=== PATIENT | male | born 1930 | race Caucasian/White ===

== ENCOUNTER 2016-09-04 12:42 | Inpatient (IN) | payer MEDICARE ==
[~2016-09-04] VITALS: Ht 177.8 cm; Wt 87.2 kg
[2016-09-04] VITALS (8 sets, daily range): BP systolic 133–193; BP diastolic 56–84; PULSE 85–111; RESP 16–18; O2SAT 97–100
[~2016-09-04 12:42] MED LIST: FURO20TA PO; METF-488 PO; METO25T PO; OMEP20TA86 PO; RANI50VI IJ; TERA10CA15 PO; ZOC20 PO
[2016-09-04 14:30] LABS: BASOPHILS % (AUTO) 0.1 % (0-3); EOSINOPHILS % (AUTO) 0.1 % (0-5); MONOCYTES % (AUTO) 10.7 % (4-12); Mean Corpuscular Hemoglobin 30.4 pg (27.0-35.0); Mean Corpuscular Volume 93.7 fL (81-100); NEUTROPHILS % (AUTO) 71.6 % (40-74); Platelet Count 228 bil/L (150-400)
[2016-09-04 14:54] LABS: INR 0.95 ratio
[2016-09-04] MEDS ORDERED: LOSA50TA37 PO (15:22)
--- NOTE | 2016-09-04 15:46 | ED.REPORT ---
HPI-GI Bleed Date of Service Sep 04, 2016 ED Provider: Jose Ramon Bailon MD 86 y/o male with a hx of non-insulin dependent DM and HTN presents to the ED complaining of constant melena, a week ago. Associated sx include nausea, high BP, weakness, lightheadedness, dizziness and mild abdominal pain "around the belt line going all the way across the back". He denies vomiting. His last BM was yesterday morning. The pt took Tylenol today. Nursing Notes Stated Complaint: POSS INTERNAL BLEEDING Chief Complaint: Male Abdominal Pain Nursing Notes Reviewed: Yes Allergies: Coded Allergies: codeine (Verified Allergy, Severe, 09/04/16) colchicine (Verified Allergy, Unknown, 09/04/16) Scheduled Losartan Potassium (Losartan Potassium) 50 Mg Tablet 50 MG PO DAILY Miscellaneous Medications Furosemide-Expunged Drug, Do Not Renew! (Furosemide-Expunged Drug, Do Not Renew! ) 20 Mg Tablet 20 MG PO Metformin-Expunged Drug, Do Not Renew! (Metformin-Expunged Drug, Do Not Renew!) 1,000 Mg Tab.er.24 1,000 MG PO Metoprolol Tart-Expunged Drug, Do Not Renew! (Metoprolol Tart-Expunged Drug, Do Not Renew!) 25 Mg Tablet 25 MG PO Simvastatin-Expunged Drug, Choose New Med! (Simvastatin-Expunged Drug, Choose New Med!) 20 Mg Tablet 20 MG PO Terazosin-Expunged Drug, Do Not Renew! (Hytrin-Expunged Drug, Do Not Renew!) 10 Mg Capsule 10 MG PO General Time Seen by Provider: 15:58 Chief Complaint Chief Complaint: Other (Melena) Bleeding Severity: Moderate Hx Obtained From: Patient Arrived By: Walk-in Onset Occurred: 1 week ago Symptom Duration: Since onset Progression Since Onset: Unchanged Location: : Abdomen lower Quality: Painful Radiation: : Back Severity: Current: Mild Severity: Maximum: Mild Recent Healthcare: Recent doctor visit Similar Sx Previous: No Past Medical History Past Medical History Reports: Diabetes mellitus, Hypertension Past Surgical History Colon resection Smoking History Unknown if Ever Smoker Social History Other Social History: Good social support Ambulatory Status Independent Review of Systems GI: Reports: Abdominal pain (mild), Melena, Denies: Vomiting Neurologic: Reports: Dizziness, Lightheaded, Weakness Complete sys rev & neg: except as marked. Musculoskeletal: Reports: Back pain Physical Exam Initial Vital Signs Vital Signs (First) Date Time Temp Pulse Resp B/P Pulse Ox O2 Delivery O2 Flow Rate FiO2 09/04/16 13:21 36.4 102 18 169/67 97 Room Air Initial VS: Reviewed Head / Eyes: Atraumatic, Normocephalic Neck: Supple, Non-tender, Full range of motion Extremities: Vascular intact, Neuro intact, No swelling, No tenderness Skin: Warm, Dry, No cyanosis Neurologic: Alert, Oriented, Nonfocal General/Constitutional: Awake, Alert, Cooperative Respiratory / Chest: Atraumatic, Breath sounds NL, Breath sounds = bilat, No respiratory distress, No rales, No rhonchi, No wheezing Cardiovascular: Heart rate NL, Regular rhythm, Heart sounds NL, No gallop, No murmurs, No rubs Abdomen: Atraumatic, Soft, Non-tender, No guarding, No rebound Rectum / Perineum: No gross blood Guaiac negative - brown stool with flecks of black. Interpretation & Diagnostics Lab Results Interpretation Result Diagram: 09/04/16 1728 09/04/16 1424 Test 09/04/16 14:24 White Blood Count 7.2th/mm3 (3.8-10.1) Red Blood Count 2.37mil/mm3 (4.40-5.80) Mean Corpuscular Volume 93.7fL (81-100) Mean Corpuscular Hemoglobin 30.4pg (27.0-35.0) Mean Corpuscular Hemoglobin Concent 32.4% (32.0-37.0) Red Cell Distribution Width 14.3% (12.3-15.4) Platelet Count 228bil/L (150-400) Neutrophils (%) (Auto) 71.6% (40-74) Lymphocytes (%) (Auto) 16.9% (14-46) Monocytes (%) (Auto) 10.7% (4-12) Eosinophils (%) (Auto) 0.1% (0-5) Basophils (%) (Auto) 0.1% (0-3) Prothrombin Time 10.2sec (8.1-12.5) Prothromb Time International Ratio 0.95ratio Sodium Level 141mEq/L (134-144) Potassium Level 4.8mEq/L (3.5-5.2) Chloride Level 103mEq/L (97-108) Carbon Dioxide Level 20mmol/L (18-29) Blood Urea Nitrogen 44mg/dL (8-27) Creatinine 1.45mg/dL (0.76-1.27) Estimat Glomerular Filtration Rate 49mL/min (>59) Glucose Level 227mg/dL (60-99) Calcium Level 9.1mg/dL (8.5-10.1) Total Bilirubin 0.2mg/dL (0.0-1.2) Aspartate Amino Transf (AST/SGOT) 24U/L (0-50) Alanine Aminotransferase (ALT/SGPT) 24U/L (0-44) Alkaline Phosphatase 64U/L (25-160) Total Protein 6.0g/dL (6.4-8.4) Albumin 3.8g/dL (3.4-5.0) ECG Interpretation ECG Interpretation: Normal sinus rhtyhm. Rate 85. Time: 14:47 Interpreted by: ED physician Re-Eval/Medical Decision Med Decision/Clinical Course 86-year-old male history of partial gastrectomy and history of gastric ulcers presenting with melanotic stools times several days. Mild tachycardia blood pressure is stable. Hemoglobin is 7.2. Last baseline many years ago. Stool is brown with small flecks of melena. He is guaiac positive. Discussed with GI and will admit with PPI drip. We will transfuse PRBCs. GI to see. Source of Hx: Old records Re-Evaluation/Progress : Time of Eval: 16:30 Re-Evaluation/Progress Note: Rechecked pt. Discussed lab results, imaging results, diagnosis and plan to admit. Pt understands and agrees with the plan for admission. All questions addressed. Consultation #1: Referral / Consult Name: Alessandro Veliz MD Call Returned at: 16:24 Macerator Operator: Agrees with eval, Agrees with plan Note: Dr. Veliz recommens admission and PPI drip Consultation #2: Referral / Consult Name: Checo Mcduffie MD Call Returned at: 17:45 Macerator Operator: Will see patient, Agrees with eval, Agrees with plan, Accepts admit Counseled Regarding: Diagnosis, Lab results, Need for admission Discharge & Departure Impression: Primary Impression: GI bleed Disposition: ADMITTED TO HOSPITAL Discharge Condition All VS Reviewed: Yes Referrals: Inder Brink MD (PCP) Scribe Attestation Portions of this note were transcribed by Rosario Castellon. I, , personally performed the history, physical exam and medical decision- making;I reviewed and confirmed the accuracy of the information in the transcribed note. Signed by Satnam Salinas. 09/04/16 18:07 copies to: Inder Brink MD, Ben M MD Sep 04, 2016 15:46 Rosario Castellon Sep 04, 2016 16:04
[2016-09-04] MEDS ORDERED: Pantoprazole Inj 80 MG, Pharmacy To Mix 1 EA in 0.9% Sodium Chloride 80 ML IV ONE ×2 (16:20)
[2016-09-04] MEDS ORDERED: Pantoprazole 4 mg/mL 10 mL Inj IVPUSH ONE (16:20)
[2016-09-04] MEDS ORDERED: Ondansetron 2 mg/mL 2 mL Inj IVPUSH PRN (17:10)
[2016-09-04] MEDS ORDERED: Pantoprazole Inj 80 MG in 0.9% Sodium Chloride 100 ML IV ONE (17:10)
[2016-09-04] MEDS ORDERED: Alum-Mag Hydrox-Simeth 30 mL Suspension PO PRN (17:10)
[2016-09-04] MEDS ORDERED: Polyethylene Glycol (PEG) 17 Gm Powder PO PRN (17:10)
[2016-09-04] MEDS ORDERED: cloNIDine 0.1 mg Tablet PO PRN (17:15)
--- NOTE | 2016-09-04 18:27 | NUR ---
Transfer ED to [facility] Pt arrived to floor at approximately 1815. Pt able to ambulate to bed. Denies N/V, denies chest pain, denies SOB. BP 193/67 HR 97. Pt at bedside. Care continues. Addendum: 09/04/16 at 1924 by ROSALIE NOVAK RN notified. Administered 25 mg Metoprolol. Care continues.
[2016-09-04 18:28] LABS: Unsaturated Iron Binding 243.1 ug/dL
[2016-09-04] MEDS: 0.9% Sodium Chloride 1,000 ML IV SCH (18:43)
--- NOTE | 2016-09-04 19:00 | PCM.HPMED ---
Subjective Date of Service Sep 04, 2016 Primary Provider: Admitting Physician: Checo Mcduffie MD Primary Care Physician: Inder Brink MD Attending Physician: Checo Mcduffie MD Chief Complaint: Feeling woozy History of Present Illness: 86-year-old male who presents after feeling "woozy" after mowing his lawn. It is probably a 20' x 20' long that afterwards he was feeling a little unsteady on his feet and short of breath and decided he should probably come in. Before this he had noted that his blood pressure was 90/60 but felt well enough to go mow the lawn. He states he has been feeling a little bit woozy when he gets up from the bed and other places. He has also noted that he has had black tarry stool for the last week. He has a history of GI bleeds and sort of put 2 and 2 together and recognized that probably he needed to be in the hospital. His first episode occurred in the when he got 11 units and a gastrectomy and had at least 2 more since 2009 where endoscopy was done and he was transfused blood. Review of Systems: Gen.: No fevers chills weight loss weight gain Eyes: no visual disturbances or blurring vision HEENT: No nose/throat drainage, no pain in ears or throat, no hearing loss Lymph: No lymph nodes noted Cardiac: No chest pain, orthopnea, PND, palpitations , pedal edema ++dyspnea on exertion Pulmonary: no cough, wheezing or bringing up of sputum GI: No anorexia nausea vomiting blood in stool ++black stool : no dysuria hematuria urinary frequency or decrease in urine output Musculoskeletal: Joint swelling no joint pain no new muscle aches or back pain Neuro: No syncope, seizures no loss of consciousness no new focal weakness, numbness or tingling [place] woozy standing Psychiatric: New new anxiety insomnia or depression Endocrine: No new heat or cold intolerances polyuria or polydipsia Hematology: No lymphadenopathy or easy bleeding or bruising noted skin: No new rashes, stasis dermatitis Allergies Coded Allergies: codeine (Verified Allergy, Severe, 09/04/16) colchicine (Verified Allergy, Unknown, 09/04/16) Home Medications Looks like none. Entire med rec was expunged PMH Hypertension GERD/GI bleed Colon cancer BPH Type II diabetes History of gout Surgery- subtotal gastrectomy for peptic ulcer disease 1966 Appendectomy 1946 Cholecystectomy around 1999 Colon cancer with partial colectomy 1992 Vasectomy/TURP 1987 Social-quit smoking 1961, 85-imue-hngs history, occasional alcohol Family history-other 83 natural causes, mother at 49 of a massive stroke, one another brother at 51 of a stroke and another brother at 20 of appendicitis and a sister who of diabetes in her 60s, and Alzheimer' s disease. Another sister in a hole in her heart at the age of 80 of a heart attack Social History Hx Alcohol Use: Yes Hx Substance Use: No Hx Tobacco Use: No Smoking Status: Unknown if Ever Smoker Exam Vital Signs Vital Sign - Last Date Time Temp Pulse Resp B/P Pulse Ox O2 Delivery O2 Flow Rate FiO2 09/04/16 18:40 95 09/04/16 18:15 36.8 18 193/67 100 Room Air Exam Gen.- A+ O 3 no apparent distress. L but otherwise well-appearing elderly male Head-atraumatic/normocephalic Eyes- open conjunctiva clear, pupils equal, nonicteric Mouth- oral mucosa moist, no exudate, no deformity of lips ENT- ears no deformity, nose no deformity Neck- supple/trach midline CVS- RRR no murmur or gallop Lungs- CTA GI- NABS/NT soft Musc- moving 4 no obvious deformity Neuro- cranial nerves II through XII intact to gross examination, nonfocal Skin- warm and dry, no rashes/lesions/wounds noted Psych- pleasant and appropriate, Lab and Diagnostics Result Diagram: 09/04/16 1728 09/04/16 1424 12-lead ECG Rate of 85, QTC 477 concurrently reviewed by Reta 09/04 . Sinus rhythm . Prolonged [place] interval . Right bundle branch block Assessment & Plan 86-year-old male presents with melena for a week #UGI B -Patient on pantoprazole drip -Gastroenterology Dr. Pryor consulted plan for EGD tomorrow in the a.m. -Clear liquids no reds tonight nothing by mouth at midnight -2 large bore IVs and normal saline #Acute blood loss anemia- -follow H/H every 6, transfuse patient drops below 7 or becomes more symptomatic. #HTN- starting metoprolol/clonidine when necessary #Prophylaxis- DVT with SCDs only no heparin as patient bleeding, GI patient on a PPI drip on admit #Disposition- patient comes from independent living and is DO NOT RESUSCITATE confirmed with him at the bedside on admission. Checo Mcduffie MD Sep 04, 2016 19:00
--- NOTE | 2016-09-04 19:08 | CONS ---
[address] [address] CONSULTATION REPORT PATIENT: JAYLIN BACA : 1930 MR#: [id number] ADMIT: 09/04/2016 JOB ID: [id number] DATE OF SERVICE: 09/04/2016 REASON FOR CONSULTATION: It was a pleasure seeing the patient at [facility] for anemia. HISTORY OF PRESENT ILLNESS: This is an 86-year-old gentleman with insulin-dependent diabetes, high blood pressure, and history of peptic ulcer disease status post gastric resection, and also had recurring GI bleed five years ago where they did an EGD. He is not taking aspirin or ibuprofen. However, he comes in a week ago because he had an episode of black stools. The reason why he came in is because today he was mowing the lawn and afterwards he could not catch his breath. He was short of breath, lightheaded, dizzy. Because of this, the patient was forced by his daughter to come to the hospital. In the hospital, he was noted to be somewhat tachy, diaphoretic. He did not have any bowel movement today but last bowel movement was yesterday morning and it was what he described as brown stools. Rectal examination was done in the ED which they described brown stool with specks of black material. In the emergency department, his hemoglobin was noted to be 7.2, repeat was 7.3. Platelets are 228,000, white count was 7.2. INR was 0.95. BUN was 44, creatinine 1.45, and LFTs are normal. Because of this, the patient was admitted. PAST MEDICAL HISTORY: Includes diabetes, hypertension. PAST SURGICAL HISTORY: Colon resection and stomach resection. SOCIAL HISTORY: Never smoked. No alcohol. No drugs. MEDICATIONS: In the hospital include pantoprazole drip, clonidine, metoprolol, MiraLAX, senna, Zofran, Mag-Ox. PHYSICAL EXAMINATION: The patient is alert, oriented, comfortable. Vitals: Temp 36.8, pulse 97, respiration 18, blood pressure 193/67. Head and neck: No icterus. Lungs: Clear. Cardiovascular: Regular rate and rhythm. Normal S1, S2. Abdomen: Soft, nontender, nondistended, with normoactive bowel sounds. Extremities: No pitting edema at the ankles. Skin shows no jaundice. LABORATORY DATA: As above. IMPRESSION: This is a gentleman with melena x1 with a low hemoglobin with him experiencing symptomatic anemia after activity. He is not taking any ibuprofen, therefore it is possible that there could still be an ulcer at the anastomosis site. The other possibility is ulcer from H. pylori. He is not actively bleeding. In fact, his stools were brown, although guaiac positive. He is hemodynamically a little tachy but they are transfusing him because of his symptoms that he had at home. Continue IV Protonix for now. Upper endoscopy in the morning. Keep n.p.o. MTDD
[2016-09-04] MEDS ORDERED: MeTOProlol 1 mg/mL 5 mL Inj IVPUSH PRN (19:10)
[2016-09-04] MEDS ORDERED: Glucose 40% Oral Gel 15 Gm Tube PO PRN (19:10)
[2016-09-04] MEDS ORDERED: Dextrose 10% 250 ML IV PRN (19:10)
[2016-09-04] MEDS: Insulin LISPRO 300 Unit/3 mL Inj SUBQ SCH (22:00)
[2016-09-05] VITALS (13 sets, daily range): BP systolic 162–203; BP diastolic 65–83; PULSE 61–90; RESP 14–18; O2SAT 95–99
[2016-09-05] MEDS ORDERED: 0.9% Sodium Chloride 250 ML ONE ×2 (00:23→03:15)
[2016-09-05] MEDS: Pantoprazole Inj 80 MG, Pharmacy To Mix 1 EA in 0.9% Sodium Chloride 80 ML IV SCH ×6 (02:43→23:46)
--- NOTE | 2016-09-05 06:25 | NUR ---
Care Took over care of patient at 0012. Report received from Malathi OBANDO. Patient A&Ox3. Vitals stable.
[2016-09-05] MEDS: Insulin LISPRO 300 Unit/3 mL Inj SUBQ SCH ×4 (08:00→21:38)
[2016-09-05] MEDS: 0.9% Sodium Chloride 1,000 ML IV SCH ×2 (08:14→14:04)
[2016-09-05] MEDS ORDERED: FE F PO (10:32)
[2016-09-05] MEDS ORDERED: METO100T3 PO (10:32)
[2016-09-05] MEDS ORDERED: CYA1000I IM (10:32)
[2016-09-05] MEDS ORDERED: METF500T4 PO (10:32)
[2016-09-05] MEDS ORDERED: FUR20 PO (10:32)
[2016-09-05] MEDS ORDERED: TERA5CAP6 PO (10:34)
[2016-09-05] MEDS ORDERED: SIMV20TA4 PO (10:34)
[2016-09-05] MEDS ORDERED: Propofol 10 mg/mL 20 mL Inj ONE (11:06)
[2016-09-05] MEDS ORDERED: Labetalol 5 mg/mL 20 mL Inj IVPUSH PRN (11:15)
[2016-09-05] MEDS ORDERED: Nitroglycerin 2% 1 Gm Ointment TOPICAL PRN (15:45)
--- NOTE | 2016-09-05 15:52 | NUR ---
Social Work- Initial Assessment Data: See Initial Assessment. Pt is a 86 year old male admitted 09/04/16 for GI Bleed per H&P. Pt's insurance is [employer] [facility]. Pt's PCP is Inder Brink MD. Pt's NOK is Colleen Sequeira, , . Pt's readmit risk score is 1, low risk. Pt was transfused today. Pt to receive EGD. SW met with pt at bedside regarding discharge plan, SW role explained. Pt alert and oriented x3. Pt resides in [place] in a single story home with his where he is independent at baseline. Pt identified his as discharge planning contact. Pt was mowing his lawn prior to admission. Pt uses no DME at baseline and drives occasionally. Pt has no HH or SNF history. Pt has LTC insurance but was unable to name company. Pt has no VA benefits. SW requested that pt's DPOA paperwork be brought into the hospital. Pt reports his daughters check in on him and his at home and encourage activity. Pt anticipated to discharge home with daughters to transport via POV, SW will continue to follow for discharge planning needs. No discharge needs identified at this time. Assessment: Pt who is independent at baseline. Plan: Pt anticipated to discharge home with daughters to transport via POV when medically stable. SW will continue to follow for discharge planning needs. No discharge needs identified at this time. CAITLIN Rodriguez Addendum: 09/05/16 at 1559 by SHANTEL MIGUEL Amended: Links added.
[2016-09-05] MEDS ORDERED: Lactated Ringer's 1,000 ML IV ONE (16:21)
--- NOTE | 2016-09-05 16:39 | PCM.PNMED ---
Subjective Date of Service Sep 05, 2016 Subjective Still feeling a bit "woozy" when standing up appointment to the bathroom had a BM could not tell if there was melena. No chest pain, no dyspnea, no nausea or vomiting Exam Vital Signs Vital Sign - Last Date Time Temp Pulse Resp B/P Pulse Ox O2 Delivery O2 Flow Rate FiO2 09/05/16 15:08 36.8 66 16 203/83 97 Room Air Intake and Output 09/04/16 09/04/16 09/05/16 Cumulative From/Thru 15:00 23:00 07:00 09/04/16 13:21 - 09/05/16 06:02 Intake Total 1216 ml 1216 ml Output Total 1175 ml 1175 ml Balance 41 ml 41 ml Intake Oral 0 ml 0 ml IV Total 603 ml 603 ml Packed Cells 613 ml 613 ml Output Urine Total 1175 ml 1175 ml # Bowel Movements 1 1 Exam Gen.- A+ O 3 no apparent distress. L but otherwise well-appearing elderly male Head-atraumatic/normocephalic Eyes- open conjunctiva clear, pupils equal, nonicteric Mouth- no deformity of lips ENT- ears no deformity, nose no deformity Neck- supple/trach midline CVS- RRR no murmur or gallop Lungs- CTA GI- NABS/NT soft Musc- moving 4 no obvious deformity Neuro- cranial nerves II through XII intact to gross examination, nonfocal Skin- warm and dry, no rashes/lesions/wounds noted Psych- pleasant and appropriate, Lab and Diagnostics Result Diagram: 09/05/16 1110 09/04/16 1424 12-lead ECG Rate of 85, QTC 477 concurrently reviewed by Reta 09/04 . Sinus rhythm . Prolonged [place] interval . Right bundle branch block Assessment & Plan 86-year-old male presents with melena for a week 09/05 patient got 2 units PRBCs overnight to maintain stable H/H. Has had severe HTN all day, starting his home med regimen, adding labetalol and now amlodipine/topical nitroglycerin. Med rec completed #HTN-metoprolol increased to 50 mg every 6, when necessary labetalol, amlodipine 10 mg daily, topical nitroglycerin #UGI B -Patient on pantoprazole drip -Gastroenterology Dr. Veliz consult EGD today BP allowing -2 large bore IVs and normal saline #Acute blood loss anemia- -follow H/H every 6, transfuse patient drops below 7 or becomes more symptomatic. -2 units PRBCs 09/05 #NIDDM-continuing sliding scale #BPH-resuming Terazosin in nonissue #Prophylaxis- DVT with SCDs only no heparin as patient bleeding, GI patient on a PPI drip on admit #Disposition- patient comes from independent living and is DO NOT RESUSCITATE confirmed with him at the bedside on admission. VTE Mechanical Devices: Intermittant Pneumatic CD Checo Mcduffie MD Sep 05, 2016 16:38
--- NOTE | 2016-09-05 18:52 | PCM.HPANE ---
Patient Data Date of Service: Sep 05, 2016 (1800) Surgeon Admitting Provider:Checo Mcduffie MD Attending Provider:Checo Mcduffie MD Primary Care Physician:Inder Brink MD Other Provider: Reason for Visit Gi Bleed GI BLEED Ht/WT & BMI Height (Feet): 5 Height (Inches): 10.00 Weight (Kilograms): 87.200 Body Mass Index 27.52 Allergies Coded Allergies: codeine (Verified Allergy, Severe, 09/04/16) colchicine (Verified Allergy, Unknown, 09/04/16) Past Anesthesia History Anesthesia History: Denies:: Anesthesia Reactions Diabetes History Hx Diabetes?: Yes Current Bedside Blood Glucose: 131 MRSA MRSA: No Medications Reported Medications Terazosin 5 Mg Capsule5 Mg PO HS Ref 0 09/05/16 Simvastatin 20 Mg Eqmgfu26 Mg PO HS Ref 0 09/05/16 Cyanocobalamin (Cyanocobalamin Injection)1,000 Mcg/1 Ml Vial1,000 Mcg IM Monthly 09/05/16 Fe Fumarate/Vit C/B12/Stomc (Hematogen Softgel)1 Each Capsule1 Each PO DAILY 09/05/16 Furosemide 20 Mg Tab10 Mg PO DAILY 30 Days Ref 0 09/05/16 Metoprolol Tartrate 100 Mg Yxsxun89 Mg PO BID 30 Days Ref 0 09/05/16 Metformin 500 Mg Xxtykd419 Mg PO DAILY Ref 0 09/05/16 Losartan Potassium 50 Mg Wcptdx25 Mg PO BID 09/04/16 Discontinued Reported Medications Furosemide 20 Mg Tab20 Mg PO DAILY 30 Days Ref 0 09/05/16 Metoprolol Tart-Expunged Drug, Do Not Renew! 25 Mg Ewoxhs15 Mg PO 01/23/12 Simvastatin-Expunged Drug, Choose New Med! 20 Mg Sbqzjr27 Mg PO HS 01/23/12 Terazosin-Expunged Drug, Do Not Renew! (Hytrin-Expunged Drug, Do Not Renew!)10 Mg Jifcfra44 Mg PO HS 01/23/12 Furosemide-Expunged Drug, Do Not Renew! 20 Mg Nsuvsc99 Mg PO 01/23/12 Metformin-Expunged Drug, Do Not Renew! 1,000 Mg Tab.er.241,000 Mg PO 01/23/12 Ranitidine Hcl-Expunged Drug, Do Not Renew! 50 Mg/2 Ml Vial50 Mg IJ 01/23/12 Omeprazole-Expunged Drug, Do Not Renew! 20 Mg Tablet.dr20 Mg PO 01/23/12 History History of ENT Problems?: Yes HEENT History: Positive for:: Cataracts Dysphagia Denies:: Abnormal Airway Difficult Intubation Glaucoma Hearing Problem Sinus Problem TMJ Denture Type: None Teeth Condition: Within Normal Limits Hx of Heart Problems?: Yes Cardiovascular History: Positive for:: Hypertension Denies:: Cardiac Surgery Chest Pain Congestive Heart Failure Edema Heart Murmur Irregular Heartbeat Pacemaker Thrombophlebitis Hx of Respiratory Problem?: No Respiratory History: Denies:: Asthma COPD Chest Surgery Dyspnea Emphysema Hemoptysis Pneumonia Tuberculosis Hx Neurologic Problems?: No Neurological History: Denies:: Alzheimer's Disease CVA Dementia Dizziness Headaches Parkinson's Disease Seizures Hx of GI Problems?: Yes Hx of Problems?: No Genitourinary History: Positive for:: Kidney Stones Denies:: HX of Hemodialysis Urinary Tract Infection HX of Peritoneal Dialysis: No Male Hx: Positive for:: Prostate Problems Denies:: Scrotal Mass Testicular Surgery Hx Musculoskeletal Problems?: Yes Musculoskeletal History: Denies:: Back Injury Joint Replacement Musculoskeletal Trauma Hx of Psycho/Social Problems?: No Psycho Social History: Denies:: Anxiety Bipolar Disorder Hx Depression Suicide Attempt Hx Surgeries?: Yes (foot surgery. appendectomy) Hx Any Other Health Problems?: Yes Other History: Positive for:: Cancer Hospitalization (appendectomy) Denies:: Thyroid Disease History Blood Transfusions: Positive for:: Accept Blood Products? Blood Transfusions Denies:: Blood Transfuse Reaction Hx Diabetes: YesBedside Blood Glucose: 131 Hx Alcohol Use: YesAlcoholic Drinks Per Day: 6 drinks a weekHx Substance Use: No Smoking Status: Unknown if Ever Smoker Have You Smoked inLast 12 mo: No Stop/Bang Treated for Sleep Apnea?: No Do You Have a CPAP Machine?: No S-Snoring: Do You Snore Loudly: No T-Tired: feel tired, fatigued: No O-Obsered: Observed not breath: No P-Blood Pressure: treated: Yes B- Body Mass Index > 35 kg/m2: No A- Age over 50: Yes N- Neck Large Circumference: No G- Gender Male: Yes SEAN Total Score: 2 Risk Assessment Category Category 1A: Patient has history of documented sleep apnea, and HAS NOT received any narcotic, sedative or anesthesia administration during this stay. Category 1B: Patient has history of documented sleep apnea, and HAS received any narcotic , sedative or anesthesia administration during this stay Category 2: Patient has SUSPECTED Obstructive Sleep Apnea, and HAS received any narcotic , sedative or anesthesia administration during this stay. Category 3: Patient has SUSPECTED Obstructive Sleep Apnea and HAS NOT received narcotic, sedative or anesthesia administration during this stay. Category 4: Outpatient in Procedural Areas with known sleep apnea or who screen positive for High Risk via the STOP/BANG questionnaire. Exam Exam Vital Signs Vital Signs Date Time Temp Pulse Resp B/P Pulse Ox O2 Delivery O2 Flow Rate FiO2 09/05/16 17:13 61 16 196/75 95 Room Air 09/05/16 15:08 36.8 66 16 203/83 97 Room Air 09/05/16 13:42 66 16 188/71 97 Room Air 09/05/16 12:13 65 16 195/75 97 Room Air 09/05/16 11:33 37.0 65 18 201/83 99 Room Air General Appearance: Alert, Oriented X3, Cooperative, No Acute Distress HEENT/AIRWAY: MP 2 Lungs: Clear to Auscultation Heart: Exam Unremarkable Meds/Labs/Diagnostics Admission Meds Current Medications Pantoprazole/ Miscellaneous/ Sodium Chloride (Protonix Inj/ Pharmacy To Mix/ Normal Saline) 100 ml @ 10 mls/hr Q10H IV Last administered on 09/05/16 12:46 ; Start 09/05/16 at 03:00 Metoprolol Tartrate 25 mg 25 mg BID PO Last administered on 09/05/16 08:15; Start 09/04/16 at 20:30; Stop 09/05/16 at 15:49; Status DC Sodium Chloride (Normal Saline) 250 ml @ ud STK-MED ONCE .ROUTE Last administered on 09/05/16 01:13; Start 09/05/16 at 00:23; Stop 09/05/16 at 00:27 ; Status DC Losartan Potassium (Cozaar) 50 mg DAILY PO Last administered on 09/05/16 08:15 ; Start 09/05/16 at 08:30 Metoprolol Tartrate (Lopressor) 50 mg BID PO Last administered on 09/05/16 11: 36; Start 09/05/16 at 11:15; Stop 09/05/16 at 15:49; Status DC Bedside Blood Glucose: 131 Labs Test 09/04/16 14:24 09/04/16 17:28 09/05/16 17:02 White Blood Count 7.2th/mm3 (3.8-10.1) Red Blood Count 2.37mil/mm3 (4.40-5.80) Mean Corpuscular Volume 93.7fL (81-100) Mean Corpuscular Hemoglobin 30.4pg (27.0-35.0) Mean Corpuscular Hemoglobin Concent 32.4% (32.0-37.0) Red Cell Distribution Width 14.3% (12.3-15.4) Platelet Count 228bil/L (150-400) Neutrophils (%) (Auto) 71.6% (40-74) Lymphocytes (%) (Auto) 16.9% (14-46) Monocytes (%) (Auto) 10.7% (4-12) Eosinophils (%) (Auto) 0.1% (0-5) Basophils (%) (Auto) 0.1% (0-3) Prothrombin Time 10.2sec (8.1-12.5) Prothromb Time International Ratio 0.95ratio Sodium Level 141mEq/L (134-144) Potassium Level 4.8mEq/L (3.5-5.2) Chloride Level 103mEq/L (97-108) Carbon Dioxide Level 20mmol/L (18-29) Blood Urea Nitrogen 44mg/dL (8-27) Creatinine 1.45mg/dL (0.76-1.27) Estimat Glomerular Filtration Rate 49mL/min (>59) Glucose Level 227mg/dL (60-99) Calcium Level 9.1mg/dL (8.5-10.1) Total Bilirubin 0.2mg/dL (0.0-1.2) Aspartate Amino Transf (AST/SGOT) 24U/L (0-50) Alanine Aminotransferase (ALT/SGPT) 24U/L (0-44) Alkaline Phosphatase 64U/L (25-160) Total Protein 6.0g/dL (6.4-8.4) Albumin 3.8g/dL (3.4-5.0) Reticulocyte Count,Calculated 2.9% (0.6-2.6) Iron Level 30ug/dL (35-150) Total Iron Binding Capacity 273ug/dL (250-450) Percent Iron Saturation 11%sat (15-50) Unsaturated Iron Binding 243.1ug/dL Ferritin 124ng/mL (30-400) Vitamin B12 Level 1013pg/mL (211-946) Hemoglobin 8.9g/dL (13.8-17.2) Hematocrit 27.4% (41.0-50.0) Plan Impression Patient chart reviewed, patient interviewed and anesthestic plan with risks, benefits, and alternatives discussed, and informed consent obtained. ASA Physical Status: ASA3 Severe Disease Anesthetic Plan: MAC Bene/Risks/Altern/Consents: Yes HP Complete Prior to Induction: Yes Robb Erickson MD Sep 05, 2016 18:52
--- NOTE | 2016-09-05 18:55 | PCM.ENDEGD ---
EGD Date of Service: Sep 05, 2016 Physician Checo Mcduffie MD Pre Procedure Diagnosis: Melena Post Procedure Dx & Findings: Significant inflammation at the anastomosis site. Procedure Esophagogastroduodenoscopy PROCEDURE IN DETAIL: After proper sedation, Olympus video endoscope was inserted into patient's mouth and esophagus was successfully intubated. Scope introduced esophagus. Esophagus showed normal shiny whitish mucosa consistent with squamous cell component. Z line was intact at 40 cm from the incisors. Scope further advanced to the stomach. Stomach showed normal shiny mucosa with normal appearing rugae folds without any ulcer mass erosion. Cardia fundus body antrum pylorus were all visualized. Retroflexion was done. Stomach was easily inflated and deflatable using air. Scope further events to anastomosis site. Anastomosis site was extremely inflamed edema is friable. Just by touching it with the biopsy forceps cause mild oozing of blood. When biopsied, oozing of blood was a lot more significant. Scope was used to attempt another biopsy site in some cases. All biopsy site had good clot in stop bleeding later. Scope advanced to both afferent and efferent loops of bowels. They revealed normal villous structures with normal appearing folds without any mass ulcer erosion. Impression Significantly inflamed and friable anastomosis site. I think what is happening is when she eats and food passes through, it is probably losing little bit of blood as the food hits this site. Recommendation Continue IV PPI for another 24 hours Liquid diet and advance to soft. Await biopsies. Presedation Assessment Risks and Benefits Informed consent was obtained from the patient after all risks and benefits including but not limited to drug reaction, infection, pain, bleeding, perforation, as well as alternatives were discussed. Patient monitoring Continuous pulse oximetry, cardiac monitoring, blood pressure monitoring, IV access, and oxygen at 2L per nasal cannula. Complications There were no periprocedural complications identified. Post Procedure Plan Post Procedure Recommendations 1. Restrict activities today. 2. Resume normal activities in the morning. 3. Resume medications. 4. GERD behavioral modification: - Avoid fatty, acidic, spicy, large meals - Do not lie down after meals - Do not eat or drink anything for at least 2 1/2 hours before going to bed at night - Discontinue tobacco and alcohol - Decrease or avoid caffeine - Avoid chocolate and mints - Decrease weight - Avoid aspirin and non steroidal anti-inflammatory agents (NSAID) such as Aleve, Advil, Mobic, Naproxen, Ibuprofen, etc 5. Add proton pump inhibitor. Take 30 minutes before 1st meal of the day. 6. Patient informed of normal post procedure side effects as bloating, drowsiness, blood streaking in the stool 7. If gastric biopsy reveal H.pylori, continue with appropriate treatment 8. If small bowel biopsy reveals celiac, continue with appropriate treatment 9. Please don't hesitate to call me with any questions Alessandro Veliz MD Sep 05, 2016 18:55
--- NOTE | 2016-09-05 19:17 | NUR ---
elevated BP patient BP remains elevated throughout day despite PRN Labatalol and Catapres. Dr Mcduffie notified and PO norvasc and nitro paste added. per GI lab, hold PO meds until after EGD, so Norvasc was held. 2" of nitro paste applied to right chest wall. SPB did drop under 200. patient remains asymptomatic with elevated BP's. information about BP med changes and PRNs passed on in shift report.
--- NOTE | 2016-09-05 23:13 | NUR ---
Endo Patient back from Endo around 190. A&Ox3, answering questions appropriately. Denied pain/discomfort. Nitro paste in place. One time order of Norvasc PO given with HS medications- as it was not able to be given on day shift. Per Dr. Veliz, okay for patient to resume clear liquids this evening. Tolerating well, denies N/V. Addendum: 09/06/16 at 0339 by GERARD DIMAS RN Patient ripped out intact IV to right FA. Unclear as to how it happened, patient unable to really state. SL in place to left forearm and IVF switched over. Housekeeping in to clean blood up as patient got it all over furniture & equipment trying to clean it up himself. Bedding and gown replaced. Rogelio alarm in place for safety.
[2016-09-06 00:26] VITALS: BP 155/63; PULSE 64; RESP 17; O2SAT 96
[2016-09-06 04:42] VITALS: PULSE 58
[2016-09-06 05:56] VITALS: BP 148/66; PULSE 61; RESP 17; O2SAT 96
[2016-09-06 08:00] VITALS: PULSE 66
[2016-09-06] MEDS: Insulin LISPRO 300 Unit/3 mL Inj SUBQ SCH ×2 (08:00→12:00)
[2016-09-06] MEDS ORDERED: B12 PO SCH (08:30)
[2016-09-06] MEDS ORDERED: VIT C PO SCH (08:30)
[2016-09-06] MEDS ORDERED: [UNRECOGNIZED DRUG - OTHER] PO SCH (08:30)
[2016-09-06] MEDS ORDERED: FE FUMARATE PO SCH (08:30)
[2016-09-06] MEDS: Pantoprazole Inj 80 MG, Pharmacy To Mix 1 EA in 0.9% Sodium Chloride 80 ML IV SCH ×2 (09:00)
[2016-09-06 09:36] VITALS: BP 168/73; PULSE 68; RESP 18; O2SAT 97
--- NOTE | 2016-09-06 11:15 | NUR ---
Social Work: Readiness for Discharge D: EMR reviewed. Pt is on day 2 of hospitalization. Per MD in AM multi-disciplinary rounds, pt is likely to discharge today. MD will determine discharge and medical stability after pt has been cleared by GI. Pt anticipated to discharge home with daughters to transport via POV. SW does not anticipate any discharge needs at this time but will continue to follow if needs arise. A: Pt who is independent at baseline. P: Pt anticipated to discharge home with daughters to transport via POV. JAH does not anticipate any discharge needs at this time but will continue to follow if needs arise. CAITLIN Bermeo
--- NOTE | 2016-09-06 11:56 | PCM.DIMED ---
Discharge Instructions Date of Service Sep 06, 2016 Dates of Hospitalization Sep 04, 2016 at 17:26 Discharge Diagnosis Discharge Diagnosis Bleeding from stomach, anemia as a result Diet Discharge Diet: Heart Healthy, Diabetic, Other (soft foods slowly returning to normal. Small meals, nothing spicy, low fat) Activity Discharge Activity: No restrictions Call your provider Call your provider for: Shortness of breath, Bleeding Patient Instructions Patient Instructions Slowly resume normal diet and activities. Watch for black or bloody stools. Follow-up with primary care provider in about a week and get blood tests done Friday or Friday. Call for follow-up with nursing specialist Dr. Veliz Follow-up Provider: Inder Brink MD Follow-up with PCP in: 1 week (please follow up on hemoglobin and symptoms) Provider: Alessandro Veliz MD Follow-up in: Other (2-4 weeks follow up on biopsies call for appointment) Checo Mcduffie MD Sep 06, 2016 11:56
[2016-09-06] MEDS ORDERED: FOLI1TAB18 PO (12:01)
[2016-09-06] MEDS ORDERED: METO100T3 PO (12:01)
[2016-09-06] MEDS ORDERED: FERR-83 PO (12:01)
[2016-09-06] MEDS ORDERED: AMLO5TAB2 PO (12:01)
--- NOTE | 2016-09-06 13:57 | NUR ---
Social Work: Discharge D: EMR reviewed. Pt is on day 2 of hospitalization. Per MD in AM multi-disciplinary rounds, pt is likely to discharge today. MD will determine discharge and medical stability after pt has been cleared by GI. Pt to discharge home with daughters to transport via POV. SW does not anticipate any discharge needs at this time but will continue to follow if needs arise. A: Pt who is independent at baseline. P: Pt to discharge home with daughters to transport via POV. JAH does not anticipate any discharge needs at this time but will continue to follow if needs arise. CAITLIN Bermeo
--- NOTE | 2016-09-06 14:15 | NUR ---
Discharge Orders for discharge were received. The patient was made aware of the plan for discharge and was agreeable to go. The patient was given information as well as teaching on his diagnosis and treatment, signs and symptoms to be aware of, follow up instructions with both GI and his PCP, orders for lab work to be done and information on new prescriptions (scripts faxed to patients preferred pharmacy by MD). The patient signified understanding of this information, verified using the teach back method. The patient's asymptomatic IV was then removed intact and the patient was dressed in his own clothing. The patient's belongings were gathered and the patient ambulated into a wheelchair which took him to the main entrance where he ambulated into an awaiting private vehicle. At the time of discharge the patient was alert and oriented, with no complaint of shortness of breath, chest pain, dizziness, bleeding or other difficulty.
--- NOTE | 2016-09-06 16:56 | PCM.DC.MED ---
Discharge Summary Date of Service Sep 06, 2016 Dates of Hospitalization Date of Hospital Admission Sep 04, 2016 at 17:26 Date of Discharge: Sep 06, 2016 Providers: Admitting Physician: Melvin Mcduffie MD Primary Care Physician: Inder Brink MD Attending Physician: Melvin Mcduffie MD Diagnosis at Time of Discharge Diagnosis at Time of Discharge Bleeding from stomach, anemia as a result Consultations Veliz-GI Procedures ECG 12 Lead Rate of 85, QTC 477 concurrently reviewed by Reta 09/04 . Sinus rhythm . Prolonged NH interval . Right bundle branch block Invasive Procedures EGD Date of Service: Sep 05, 2016 Physician Melvin Mcduffie MD Pre Procedure Diagnosis: Melena Post Procedure Dx & Findings: Significant inflammation at the anastomosis site. Procedure Esophagogastroduodenoscopy PROCEDURE IN DETAIL: After proper sedation, Olympus video endoscope was inserted into patient's mouth and esophagus was successfully intubated. Scope introduced esophagus. Esophagus showed normal shiny whitish mucosa consistent with squamous cell component. Z line was intact at 40 cm from the incisors. Scope further advanced to the stomach. Stomach showed normal shiny mucosa with normal appearing rugae folds without any ulcer mass erosion. Cardia fundus body antrum pylorus were all visualized. Retroflexion was done. Stomach was easily inflated and deflatable using air. Scope further events to anastomosis site. Anastomosis site was extremely inflamed edema is friable. Just by touching it with the biopsy forceps cause mild oozing of blood. When biopsied, oozing of blood was a lot more significant. Scope was used to attempt another biopsy site in some cases. All biopsy site had good clot in stop bleeding later. Scope advanced to both afferent and efferent loops of bowels. They revealed normal villous structures with normal appearing folds without any mass ulcer erosion. Impression Significantly inflamed and friable anastomosis site. I think what is happening is when she eats and food passes through, it is probably losing little bit of blood as the food hits this site. Recommendation Continue IV PPI for another 24 hours Liquid diet and advance to soft. Await biopsies. Presedation Assessment Risks and Benefits Informed consent was obtained from the patient after all risks and benefits including but not limited to drug reaction, infection, pain, bleeding, perforation, as well as alternatives were discussed. Patient monitoring Continuous pulse oximetry, cardiac monitoring, blood pressure monitoring, IV access, and oxygen at 2L per nasal cannula. Complications There were no periprocedural complications identified. Post Procedure Plan Post Procedure Recommendations 1. Restrict activities today. 2. Resume normal activities in the morning. 3. Resume medications. 4. GERD behavioral modification: - Avoid fatty, acidic, spicy, large meals - Do not lie down after meals - Do not eat or drink anything for at least 2 1/2 hours before going to bed at night - Discontinue tobacco and alcohol - Decrease or avoid caffeine - Avoid chocolate and mints - Decrease weight - Avoid aspirin and non steroidal anti-inflammatory agents (NSAID) such as Aleve, Advil, Mobic, Naproxen, Ibuprofen, etc 5. Add proton pump inhibitor. Take 30 minutes before 1st meal of the day. 6. Patient informed of normal post procedure side effects as bloating, drowsiness, blood streaking in the stool 7. If gastric biopsy reveal H.pylori, continue with appropriate treatment 8. If small bowel biopsy reveals celiac, continue with appropriate treatment 9. Please don't hesitate to call me with any questions Brief History 86-year-old male who presents after feeling "woozy" after mowing his lawn. It is probably a 20' x 20' long that afterwards he was feeling a little unsteady on his feet and short of breath and decided he should probably come in. Before this he had noted that his blood pressure was 90/60 but felt well enough to go mow the lawn. He states he has been feeling a little bit woozy when he gets up from the bed and other places. He has also noted that he has had black tarry stool for the last week. He has a history of GI bleeds and sort of put 2 and 2 together and recognized that probably he needed to be in the hospital. His first episode occurred in the when he got 11 units and a gastrectomy and had at least 2 more since 2009 where endoscopy was done and he was transfused blood. Hospital Course 86-year-old male presents with melena for a week 09/05 patient got 2 units PRBCs overnight to maintain stable H/H. Has had severe HTN all day, starting his home med regimen, adding labetalol and now amlodipine/topical nitroglycerin. Med rec completed 09/06 patient persistently hypertensive increased his metoprolol to 100 mg twice a day, added amlodipine to his regimen. On discharge follow-up basic metabolic to follow up on renal function, CBC for follow-up on bleeding ordered for 09/09 or 09/10 probably needs follow-up with primary care provider within the next week to follow-up on blood pressure issues as well. He will see gastroenterology in the next 2-4 weeks to follow up on biopsy results. Patient was initially discharged without PPI. I called him up and transmitted prescription for pantoprazole 40 mg twice a day daily to [facility]. He tells me he has omeprazole at home I told him that would substitute fine and he did not necessarily need to pick it up but he should be taking an acid blocking agent full-strength at least twice a day until he sees the automobile glass technician the next time in addition to the recommendations that were on the sheet. He stated he understood and would do that. I do however have my concerns based on our prior discussions about his memory and cognitive abilities. I will also recommend that his primary care provider follow up on this on Friday. #HTN-metoprolol increased to 50 mg every 6, when necessary labetalol, amlodipine 10 mg daily, topical nitroglycerin #UGI B-and anastomotic bleed from gastrectomy site 1966 -Patient on pantoprazole drip, -Gastroenterology Dr. Veliz consult EGD completed 09/06 see above for results -Prescription for pantoprazole 40 mg twice a day a [facility] after discharge as described above. #Acute blood loss anemia-iron deficient by studies 09/05 -follow H/H every 6, transfuse patient drops below 7 or becomes more symptomatic. 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 Exam Vital Signs (Last) Date Time Temp Pulse Resp B/P Pulse Ox O2 Delivery O2 Flow Rate FiO2 09/06/16 09:36 36.7 68 18 168/73 97 Room Air Exam Gen.- A+ O 3 no apparent distress. Pale but otherwise well-appearing elderly male Head-atraumatic/normocephalic Eyes- open conjunctiva clear, pupils equal, nonicteric Mouth- no deformity of lips ENT- ears no deformity, nose no deformity Neck- supple/trach midline CVS-normal rate Lungs-no respiratory distress GI-flat Musc- moving 4 no obvious deformity Neuro- cranial nerves II through XII intact to gross examination, nonfocal Skin- warm and dry, no rashes/lesions/wounds noted Psych- pleasant and appropriate, Test 09/04/16 14:24 09/04/16 17:28 09/05/16 23:15 White Blood Count 7.2th/mm3 (3.8-10.1) Red Blood Count 2.37mil/mm3 (4.40-5.80) Mean Corpuscular Volume 93.7fL (81-100) Mean Corpuscular Hemoglobin 30.4pg (27.0-35.0) Mean Corpuscular Hemoglobin Concent 32.4% (32.0-37.0) Red Cell Distribution Width 14.3% (12.3-15.4) Platelet Count 228bil/L (150-400) Neutrophils (%) (Auto) 71.6% (40-74) Lymphocytes (%) (Auto) 16.9% (14-46) Monocytes (%) (Auto) 10.7% (4-12) Eosinophils (%) (Auto) 0.1% (0-5) Basophils (%) (Auto) 0.1% (0-3) Prothrombin Time 10.2sec (8.1-12.5) Prothromb Time International Ratio 0.95ratio Sodium Level 141mEq/L (134-144) Potassium Level 4.8mEq/L (3.5-5.2) Chloride Level 103mEq/L (97-108) Carbon Dioxide Level 20mmol/L (18-29) Blood Urea Nitrogen 44mg/dL (8-27) Creatinine 1.45mg/dL (0.76-1.27) Estimat Glomerular Filtration Rate 49mL/min (>59) Glucose Level 227mg/dL (60-99) Calcium Level 9.1mg/dL (8.5-10.1) Total Bilirubin 0.2mg/dL (0.0-1.2) Aspartate Amino Transf (AST/SGOT) 24U/L (0-50) Alanine Aminotransferase (ALT/SGPT) 24U/L (0-44) Alkaline Phosphatase 64U/L (25-160) Total Protein 6.0g/dL (6.4-8.4) Albumin 3.8g/dL (3.4-5.0) Reticulocyte Count,Calculated 2.9% (0.6-2.6) Iron Level 30ug/dL (35-150) Total Iron Binding Capacity 273ug/dL (250-450) Percent Iron Saturation 11%sat (15-50) Unsaturated Iron Binding 243.1ug/dL Ferritin 124ng/mL (30-400) Vitamin B12 Level 1013pg/mL (211-946) Hemoglobin 8.2g/dL (13.8-17.2) Hematocrit 25.5% (41.0-50.0) Discharge Medications Discharge Medications Amlodipine (Amlodipine) 5 Mg Tablet 10 MG PO DAILY Prescribed by: MELVIN MCDUFFIE MD Cyanocobalamin (Cyanocobalamin Injection) 1,000 Mcg/1 Ml Vial 1,000 MCG IM Monthly (Reported) Fe Fumarate/Vit C/B12/Stomc (Hematogen Softgel) 1 Each Capsule 1 EACH PO DAILY ( Reported) Ferrous Sulfate (Ferrous Sulfate) 325 Mg Tablet 325 MG PO BIDAC Prescribed by: MELVIN MCDUFFIE MD Folic Acid (Folic Acid) 1 Mg Tablet 1 MG PO DAILY Prescribed by: MELVIN MCDUFFIE MD Losartan Potassium (Losartan Potassium) 50 Mg Tablet 50 MG PO BID (Reported) Metformin (Metformin) 500 Mg Tablet 500 MG PO DAILY (Reported) Metoprolol Tartrate (Metoprolol Tartrate) 100 Mg Tablet 100 MG PO BID Prescribed by: MELVIN MCDUFFIE MD Pantoprazole (Pantoprazole DR) 40 Mg Tablet.dr 40 MG PO BID Prescribed by: MELVIN MCDUFFIE MD Simvastatin (Simvastatin) 20 Mg Tablet 10 MG PO HS (Reported) Terazosin (Terazosin) 5 Mg Capsule 5 MG PO HS (Reported) Followup Plan Disposition: To home Follow-up plan Call primary care provider for follow-up next week with CBC and basic metabolic on 09/09 or 09/10. So follow-up on blood pressure and renal function and hemoglobin are stable H&H Discharge Diet: Heart Healthy, Diabetic, Other (soft foods slowly returning to normal. Small meals, nothing spicy, low fat) Discharge Activity: No restrictions Patient Instructions Slowly resume normal diet and activities. Watch for black or bloody stools. Follow-up with primary care provider in about a week and get blood tests done Friday or Friday. Call for follow-up with automobile glass technician Dr. Veliz Follow-up Provider: Inder Brink MD Follow-up with PCP in: 1 week (please follow up on hemoglobin and symptoms) Provider: Alessandro Veliz MD Follow-up in: Other (2-4 weeks follow up on biopsies call for appointment) Time spent Greater than 30 minutes Attending Statement Patient was called regarding a missed PPI prescription that was transmitted to [email or web address] he also says he has Prilosec at home I told be taking 40 mg twice a day. He should have CBC and basic metabolic panel to follow on anemia and renal function 09/09 or 09/10 see primary in the next week or at least daily primary iron miner to have blood pressure checked. copies to: Inder Brink MD, Andris E MD Sep 06, 2016 16:56
[2016-09-06] MEDS ORDERED: PANT40TA3 PO (16:57)
--- NOTE | 2016-09-10 15:10 | PATH ---
SURGICAL PATHOLOGY Attending Physician:Alessandro Veliz M.D. CASE STATUS: Signed Out PATIENT NAME: JAYLIN BACA PID: [id number] : 1930 DATE COLLECTED:09/05/2016 00:00 SPECIMEN: Soft Tissue Mass, Biopsy CLINICAL HISTORY: 1). ANASTOMOSIS SITE BIOPSY FINAL DIAGNOSIS: 1.ANASTOMOSIS SITE, BIOPSY: GASTRIC-TYPE MUCOSA WITH CHRONIC ACTIVE INFLAMMATION. Negative for Helicobacter organisms. Negative for intestinal metaplasia. No evidence of dysplasia or malignancy. ICD10 K29.70 GROSS DESCRIPTION: The specimen is received in formalin, labeled with the patient's name, sublabeled as anastomosis site BX, and consists of multiple fragments of mac-glistening, rubbery tissue (0.5 x 0.2 x 0.2 cm in aggregate). Section code: (A) tissue. Specimen entirely submitted. ([id number]) MICRO DESCRIPTION: The lamina propria of gastric-type mucosa is expanded by acute and chronic inflammatory cells. An immunostain for Helicobacter organisms is done because of the acute inflammation and is negative. This test was developed and its performance characteristics determined by [facility]. It has not been cleared or approved by the U. S. Food and Drug Administration. The FDA has determined that such clearance or approval is not necessary. This test is used for clinical purposes. It should not be regarded as investigational or for research. ICD-9 CODES: CPT CODES: 1: 25407, 32492 Electronically Signed Out John Paul MD [facility] [address], [place] [address] Technical component performed at [facility], [address], [place], [address]
== END 2016-09-06 14:10 | disposition home or self-care (01) | DRG 378 ==
LOC: SED 12:42 → OSC 17:26
PROVIDERS: ADMIT Hospitalist; ATTEND Hospitalist
PROC: 30233N1 Transfusion of Nonautologous Red Blood Cells into Peripheral Vein, Percutaneous Approach (ICD-10-PCS; 2016-09-05)
PROC: 0DB68ZX Excision of Stomach, Via Natural or Artificial Opening Endoscopic, Diagnostic (ICD-10-PCS; principal; 2016-09-05 16:15)
DX: K92.2 Gastrointestinal hemorrhage, unspecified (principal); D62 Acute posthemorrhagic anemia; K92.1 Melena; E11.9 Type 2 diabetes mellitus without complications; I10 Essential (primary) hypertension; K21.9 Gastro-esophageal reflux disease without esophagitis; N40.0 Benign prostatic hyperplasia without lower urinary tract symptoms; Z66 Do not resuscitate; Z87.11 Personal history of peptic ulcer disease; Z90.3 Acquired absence of stomach [part of]

== ENCOUNTER 2016-09-18 10:02 | Emergency (ER) | payer MEDICARE ==
[~2016-09-18] VITALS: Ht 177.8 cm; Wt 85.0 kg
[~2016-09-18 10:02] MED LIST changes: +AMLO5TAB2 PO; +CYA1000I IM; +FE F PO; +FERR-83 PO; +FOLI1TAB18 PO; -FURO20TA PO; +LOSA50TA37 PO; -METF-488 PO; +METF500T4 PO; +METO100T3 PO; -METO25T PO; -OMEP20TA86 PO; +PANT40TA3 PO; -RANI50VI IJ; +SIMV20TA4 PO; -TERA10CA15 PO; +TERA5CAP6 PO; -ZOC20 PO
[2016-09-18 10:06] VITALS: BP 161/63; PULSE 60; RESP 18; O2SAT 96
--- NOTE | 2016-09-18 10:20 | ED.REPORT ---
HPI-GI Bleed Date of Service Sep 18, 2016 ED Provider: Jorge Alberto Brandt MD The pt is an 86 y/o male w/ a hx of GI bleeds, and colon cancer presenting to the ED complaining of dark stools onset earlier today. He also reports a "strange" sensation about half a foot above his rectum which began after he passed his stool this morning. The pt also describes feeling "tired" since leaving the hospital 2 weeks ago where he was receiving a transfusion after being admitted for GI bleeding. The pt reports his stool being green before this episode of dark stool. The pt was admitted for GI bleeding on 09/04/2016. Nursing Notes Stated Complaint: BLACK STOOL Chief Complaint: Male Abdominal Pain Nursing Notes Reviewed: Yes (Dejamor not reconciled) Allergies: Coded Allergies: codeine (Verified Allergy, Severe, 09/04/16) colchicine (Verified Allergy, Unknown, 09/04/16) Scheduled Amlodipine (Amlodipine) 5 Mg Tablet 10 MG PO DAILY Cyanocobalamin (Cyanocobalamin Injection) 1,000 Mcg/1 Ml Vial 1,000 MCG IM Monthly Fe Fumarate/Vit C/B12/Stomc (Hematogen Softgel) 1 Each Capsule 1 EACH PO DAILY Ferrous Sulfate (Ferrous Sulfate) 325 Mg Tablet 325 MG PO BIDAC Folic Acid (Folic Acid) 1 Mg Tablet 1 MG PO DAILY Losartan Potassium (Losartan Potassium) 50 Mg Tablet 50 MG PO BID Metformin (Metformin) 500 Mg Tablet 500 MG PO DAILY Metoprolol Tartrate (Metoprolol Tartrate) 100 Mg Tablet 100 MG PO BID Pantoprazole DR (Pantoprazole DR) 40 Mg Tablet.dr 40 MG PO BID Simvastatin (Simvastatin) 20 Mg Tablet 10 MG PO HS Terazosin (Terazosin) 5 Mg Capsule 5 MG PO HS General Time Seen by Provider: 11:00 Chief Complaint Chief Complaint: Stool tarry black Hx Obtained From: Patient Arrived By: Walk-in Onset Occurred: 1 - 4 hours ago Symptom Duration: Since onset Recent Healthcare: Recent doctor visit, Recent hospitalization Similar Sx Previous: Yes Past Medical History Past Medical History Notes: Admitted August 2016 with GI bleed, transfused 2 units-endoscopy field anastomotic bleed from gastrectomy site 1966, on PPI therapy-pathology negative for H. pylori, malignancy Past Medical History Hypertension GERD History of GI bleeds Colon cancer history BPH History of gout Admit for GI bleed 09/04/2016 Reports: Diabetes mellitus (2), Hypertension Past Surgical History Colon resection Gastrectomy Endoscopy August 2016 positive for friable anastomosis site Appendectomy 194 Cholecystectomy 1999 Colon cancer partial colectomy 1992 Vasectomy and TURP 1997 Smoking History Former Smoker (quit 1960) Social History Other Social History: Good social support Ambulatory Status Independent Review of Systems GI: Reports: Melena Complete sys rev & neg: except as marked. Physical Exam Initial Vital Signs Vital Signs (First) Date Time Temp Pulse Resp B/P Pulse Ox O2 Delivery O2 Flow Rate FiO2 09/18/16 10:06 36.5 60 18 161/63 96 Room Air Initial VS: Reviewed, Vital signs normal Head / Eyes: Atraumatic, Normocephalic, PERRL Neck: Supple, Non-tender, Full range of motion Extremities: Vascular intact, Neuro intact, No swelling, No tenderness Skin: Warm, Dry, No cyanosis Neurologic: Alert, Oriented, Nonfocal Psychiatric: Mood/affect normal, Behavior normal, Normal thought content General/Constitutional: Awake, Alert, No acute distress Respiratory / Chest: Atraumatic, Breath sounds NL, Breath sounds = bilat, No respiratory distress, No rales, No rhonchi, No wheezing Cardiovascular: Heart rate NL, Regular rhythm, Heart sounds NL Abdomen: Atraumatic, Soft Rectum / Perineum: No discharge, No mass Guaiac was positive during rectal exam Interpretation & Diagnostics Lab Results Interpretation Result Diagram: 09/18/16 1040 09/18/16 1040 Test 09/18/16 10:40 White Blood Count 5.8th/mm3 (3.8-10.1) Red Blood Count 3.33mil/mm3 (4.40-5.80) Hemoglobin 9.9g/dL (13.8-17.2) Hematocrit 30.6% (41.0-50.0) Mean Corpuscular Volume 91.9fL (81-100) Mean Corpuscular Hemoglobin 29.7pg (27.0-35.0) Mean Corpuscular Hemoglobin Concent 32.4% (32.0-37.0) Red Cell Distribution Width 13.8% (12.3-15.4) Platelet Count 255bil/L (150-400) Neutrophils (%) (Auto) 62.7% (40-74) Lymphocytes (%) (Auto) 23.6% (14-46) Monocytes (%) (Auto) 12.0% (4-12) Eosinophils (%) (Auto) 1.5% (0-5) Basophils (%) (Auto) 0.2% (0-3) Prothrombin Time 10.6sec (8.1-12.5) Prothromb Time International Ratio 0.99ratio Sodium Level 137mEq/L (134-144) Potassium Level 4.1mEq/L (3.5-5.2) Chloride Level 100mEq/L (97-108) Carbon Dioxide Level 20mmol/L (18-29) Blood Urea Nitrogen 21mg/dL (8-27) Creatinine 1.20mg/dL (0.76-1.27) Estimat Glomerular Filtration Rate 61mL/min (>59) Glucose Level 144mg/dL (60-99) Calcium Level 9.1mg/dL (8.5-10.1) Total Bilirubin 0.3mg/dL (0.0-1.2) Aspartate Amino Transf (AST/SGOT) 21U/L (0-50) Alanine Aminotransferase (ALT/SGPT) 18U/L (0-44) Alkaline Phosphatase 63U/L (25-160) Troponin T 0.010ug/L (0.0-0.011) Total Protein 6.7g/dL (6.4-8.4) Albumin 3.8g/dL (3.4-5.0) Lab Results Interpretation: CBC normal, anemia is markedly improved-improved from discharge following treatment prior transfusion-no evidence of recurrent or severe anemia CMP normal Re-Eval/Medical Decision Source of Hx: Old records Re-Evaluation/Progress : Time of Eval: 11:46 Re-Evaluation/Progress Note: Pt rechecked. Informed pt of plan for treatment. Pt understands and agrees with plan for treatment. F/U instructions and RTER warnings given. All questions addressed. Consultation : Referral / Consult Name: Alessandro Veliz MD Call Returned at: 11:22 Scheduling Representative: Will see patient, Will see in office, Agrees with eval, Agrees with plan Counseled Regarding: Diagnosis, Lab results, Need for follow-up, When/why to return to ED Discharge & Departure Impression: Primary Impression: GI bleed GI bleed type/associated pathology: unspecified gastrointestinal hemorrhage type Qualified Code: K92.2 - Gastrointestinal hemorrhage, unspecified Disposition: Home Discharge Condition All VS Reviewed: Yes Condition: Stable Additional Instructions: 1. Your blood counts today were still good-your hematocrit was 30, which is better than when he left the hospital. 2. I have discussed your case with Dr. Veliz. He would like to see you and recheck you again next week (instead of 2 months from now). We have made an appointment for you with Dr. Veliz in September 24 with a 2pm check-in time. 3. Make sure you are taking the omeprazole 20mg twice a day every day. This is critically important - it is the stomach medication that helps reduce the inflammation seen on your recent endsocopy. 4. Continue with your light, soft diet only. Please avoid nuts as well. 5. Return again if new or worsening symptoms. Referrals: Inder Brink MD (PCP) Scribe Attestation Portions of this note were transcribed by Leonel Burch. I, Dr. Brandt personally performed the history, physical exam and medical decision-making; I reviewed and confirmed the accuracy of the information in the transcribed note. Signed by : Satnam Mcdaniel, 09/18/16 and 1130. copies to: Inder Brink MD, Matthew F MD Sep 18, 2016 10:20 Leonel Burch Sep 18, 2016 11:32
[2016-09-18 10:53] LABS: BASOPHILS % (AUTO) 0.2 % (0-3); EOSINOPHILS % (AUTO) 1.5 % (0-5); Mean Corpuscular Hemoglobin 29.7 pg (27.0-35.0); Mean Corpuscular Volume 91.9 fL (81-100); NEUTROPHILS % (AUTO) 62.7 % (40-74); Platelet Count 255 bil/L (150-400)
[2016-09-18 11:10] LABS: INR 0.99 ratio
[2016-09-18 11:15] VITALS: BP_SYST 130; BP_SYST 158; BP_DIAS 53; BP_DIAS 54; PULSE 54; PULSE 60
[2016-09-18 11:21] LABS: TROPONIN T 0.01 ug/L (0.0-0.011)
[2016-09-18 12:18] VITALS: BP 145/54; PULSE 55; RESP 13; O2SAT 100
== END 2016-09-18 12:18 | disposition home or self-care (01) ==
LOC: SED 10:02
DX: K92.2 Gastrointestinal hemorrhage, unspecified (principal); I10 Essential (primary) hypertension; K21.9 Gastro-esophageal reflux disease without esophagitis; E11.9 Type 2 diabetes mellitus without complications; Z88.5 Allergy status to narcotic agent; Z88.8 Allergy status to other drugs, medicaments and biological substances; Z79.84 Long term (current) use of oral hypoglycemic drugs; Z87.891 Personal history of nicotine dependence; R10.9 Unspecified abdominal pain